=== PATIENT | male | born 1960 ===

== ENCOUNTER 2016-09-25 07:34 | Day surgery (SDC) | payer OTHER ==
[2016-09-25 09:03] VITALS: BMI 26.6
[2016-09-25] MEDS ORDERED: Lidocaine Hydrochloride 5 ML INJ ONE (10:47)
[2016-09-25] MEDS ORDERED: Propofol 10 mg/ml Inj (20 ML) ONE (10:48)
[2016-09-25] MEDS ORDERED: Atropine 0.4 mg/ml Inj (1 mL) ONE (10:52)
[2016-09-25] MEDS ORDERED: ePHEDrine 50 mg/ml Inj ONE (11:05)
--- NOTE | 2016-09-25 11:15 | CP.SDSHP ---
Same Day Surgery H & P - History Proposed Procedure: COLONSCOPY Pre-Op Diagnosis: SCREENING - Previous Medical/Surgical History Endocrine/Metabolic: Diabetes, Other Misc: Other Pain: 2.Mild Pain - Allergies Allergies: Allergies No Known Allergies Allergy (Verified 09/25/16 09:03) - Physical Exam General Appearance: N Vital Signs: Vital Signs 09/25/16 09:12 Temperature 98 F Pulse Rate 66 Respiratory 19 Rate Blood Pressure 123/76 O2 Sat by Pulse 99 Oximetry Mental Status: Alert & Oriented x3 Neuro: WNL Heart: WNL Lungs: WNL GI: WNL - {Optional Preform as Required} Breast: WNL Abdomen: Other Rectal: WNL Integument: WNL : WNL Ortho: WNL ENT: WNL - Impression Pt. Evaluated Today:Candidate for Anesthesia & Procedure: Yes - Date & Time Time: 11:15 Short Stay Discharge - Short Stay Discharge Admitting Diagnosis/Reason for Visit: ENCOUNTER FOR SCREENING FOR MALIGNANT NEOPLASM OF Disposition: HOME/ ROUTINE
[2016-09-25] MEDS ORDERED: Belladonna-Phenobarbital PO STA (11:18)
[2016-09-25 11:59] VITALS: TEMP 97.9
[2016-09-25 12:01] VITALS: RESP 12
[2016-09-25 13:17] VITALS: O2SAT 98
[2016-09-25 13:20] VITALS: BP 115/67; PULSE 77
== END 2016-09-25 13:00 | disposition home or self-care (01) ==
LOC: C.ENDO 07:34
PROVIDERS: ATTEND Specialist
DX: K58.9 Irritable bowel syndrome, unspecified (principal); K64.8 Other hemorrhoids
CPT/HCPCS: 45380; 82948; 88305; J0461; J2704